=== PATIENT | male | born 1990 | race Caucasian/White ===

== ENCOUNTER 2017-10-22 07:10 | Emergency (ER) | payer OTHER ==
[2017-10-22] MEDS: ONDANSETRON 4 MG INJ IV (07:38)
[2017-10-22] MEDS: SOD CHLORIDE 0.9% 1,000 ML IV (07:38)
[2017-10-22] MEDS: ONDANSETRON (ODT) 4 MG TAB ODT (07:40)
== END 2017-10-22 07:51 | disposition home or self-care (01) ==
LOC: FTE 07:10
DX: F10.10 Alcohol abuse, uncomplicated (principal)
CPT/HCPCS: 99283; J7030

== ENCOUNTER 2017-10-22 08:04 | Emergency (ER) | payer OTHER | END 2017-10-22 08:48 | disposition home or self-care (01) | LOC: E/R 08:04 | DX: R11.0 Nausea (principal) | CPT/HCPCS: 99283; Z7502 ==

== ENCOUNTER 2017-10-22 12:06 | Emergency (ER) | payer OTHER ==
[2017-10-22] MEDS: OLANZAPINE (ODT) 5 MG TAB ODT (12:40)
[2017-10-22 13:06] LABS: CANNABINOIDS Positive (NEGATIVE)
[2017-10-22 13:10] LABS: AMPHETAMINE/METHAMPHETAMINE Negative (NEGATIVE); BARBITURATES Negative (NEGATIVE); BENZODIAZEPINES Negative (NEGATIVE); COCAINE Negative (NEGATIVE); OPIATES Negative (NEGATIVE)
== END 2017-10-22 14:00 | disposition home or self-care (01) ==
LOC: E/R 12:06
DX: R11.0 Nausea (principal); Z02.89 Encounter for other administrative examinations; Z86.59 Personal history of other mental and behavioral disorders
CPT/HCPCS: 80307; 99283